=== PATIENT | male | born 1980 | race Caucasian/White ===

== ENCOUNTER 2020-04-12 23:17 | Emergency (ER) | payer OTHER, SELFPAY ==
[2020-04-12] MEDS ORDERED: MORPHINE 4 MG/ML SYR ONE (23:54)
[2020-04-12] MEDS ORDERED: ONDANSETRON 4 MG/2 ML VIAL ONE (23:55)
[2020-04-12] MEDS ORDERED: NA CHLORIDE 0.9% 1,000 ML ONE (23:55)
[2020-04-13] MEDS ORDERED: CEFTRIAXONE/SWI 1gm 1 GM/10 ML SYR ONE (00:54)
[2020-04-13] MEDS ORDERED: KETOROLAC 30 MG/ML INJ ONE (00:54)
[2020-04-13] MEDS ORDERED: FAMOTIDINE 20 MG/2 ML VIAL IV ONE (00:54)
[2020-04-13 01:53] LABS: Urine Blood 2+ (NEG); Urine Glucose TRACE (NEG); Urine Protein NEGATIVE (NEG)
[2020-04-13 01:54] LABS: Absolute Lymphocytes (CBC) 1.3 K/uL (0.7-4.9); Basophils % 0.5 % (0-1.3); Hematocrit 39.1 % (39.6-49.0); Lymphocytes % 14.1 % (15.3-44.8); MPV 11.2 fL (7.6-11.3); RBC Red Blood Cell Count 4.42 M/uL (4.33-5.43)
[2020-04-13 01:55] LABS: Protime INR 1.02
[2020-04-13 02:21] LABS: ALT/SGPT 102 U/L (12-78); AST/SGOT 52 U/L (15-37); Albumin 3.3 g/dL (3.4-5.0); Alkaline Phosphatase 89 U/L (45-117); BUN Blood Urea Nitrogen 18 mg/dL (7-18); Bicarbonate 27 mmol/L (21-32); Bilirubin Direct < 0.1 mg/dL (0-0.2); Bilirubin Total 0.3 mg/dL (0.2-1.0); Glucose Level 112 mg/dL (74-106); Lipase 85 U/L (73-393); Magnesium 2.1 mg/dL (1.8-2.4); NT PRO-BNP 126 pg/mL (<125); Potassium 3.4 mmol/L (3.5-5.1); Protein, Total 6.4 g/dL (6.4-8.2); Sodium Level 141 mmol/L (136-145); Troponin (Emerg Dept Use Only) < 0.02 ng/mL (0.0-0.045)
--- NOTE | 2020-04-13 02:51 | ER ---
Nurse's Notes [facility] Name: Clayton Mina Age: 39 yrs Sex: Male : 1980 Arrival Date: 04/12/2020 Time: 23:19 Bed 15 Private MD: Diagnosis: Abdominal tenderness;Hematuria;Hypokalemia Presentation: 04/12 23:20 Chief complaint: EMS states: toned out by patient for abd pain on lt side that was ll2 debilitating. said it began this evening and got so bad he could barely stand up. no known allergies and no home meds. Coronavirus screen: Client denies travel out of the [place] in the last 14 days. At this time, the client does not indicate any symptoms associated with coronavirus-19. Ebola Screen: Patient negative for fever greater than or equal to 101.5 degrees Fahrenheit, and additional compatible Ebola Virus Disease symptoms. Initial Sepsis Screen: Does the patient meet any 2 criteria? No. Patient's initial sepsis screen is negative. Does the patient have a suspected source of infection? No. Patient's initial sepsis screen is negative. Risk Assessment: Do you want to hurt yourself or someone else? Patient reports no desire to harm self or others. Onset of symptoms was April 12, 2020. 23:20 Method Of Arrival: EMS: [facility] ll2 23:20 Acuity: AUDREY 3 ll2 Historical: - Allergies: 23:38 No Known Allergies; sg - PMHx: 23:38 "L lung collapsed twice"; sg - PSHx: 23:38 None; sg - Immunization history:: Adult Immunizations up to date. - Family history:: not pertinent. - Social history:: Smoking status: . Screenin:30 Abuse screen: Denies threats or abuse. Nutritional screening: No deficits noted. ll2 Tuberculosis screening: No symptoms or risk factors identified. Fall Risk None identified. Assessment: 23:30 General: Appears in no apparent distress. uncomfortable, Behavior is calm, cooperative, ll2 appropriate for age. Pain: Complains of pain in left lower quadrant and left upper quadrant and posterior aspect of left lateral abdomen and anterior aspect of left lateral abdomen. Neuro: Level of Consciousness is awake, alert, obeys commands, Oriented to person, place, time, situation. Cardiovascular: Patient's skin is warm and dry. Respiratory: Airway is patent Respiratory effort is even, unlabored, Respiratory pattern is regular, symmetrical. GI: Bowel sounds present X 4 quads. Abd is soft Abdomen is tender to palpation in left lower quadrant and left upper quadrant and posterior aspect of left lateral abdomen and anterior aspect of left lateral abdomen. : No signs and/or symptoms were reported regarding the genitourinary system. EENT: No signs and/or symptoms were reported regarding the EENT system. Derm: Skin is intact, is healthy with good turgor, Skin is dry, Skin is pink, warm \\T\\ dry. Musculoskeletal: Circulation, motion, and sensation intact. Range of motion: intact in all extremities. 04/13 00:30 Reassessment: Patient and/or family updated on plan of care and expected duration. Pain ll2 level reassessed. Patient is alert, oriented x 3, equal unlabored respirations, skin warm/dry/pink. pt states the morphine has relieved his pain at this time. 01:30 Reassessment: No changes from previously documented assessment. Patient and/or family ll2 updated on plan of care and expected duration. Pain level reassessed. Patient is alert, oriented x 3, equal unlabored respirations, skin warm/dry/pink. ERD to bedside discussing need for admit. 02:30 Reassessment: Patient and/or family updated on plan of care and expected duration. Pain ll2 level reassessed. Patient is alert, oriented x 3, equal unlabored respirations, skin warm/dry/pink. 03:12 Reassessment: Patient and/or family updated on plan of care and expected duration. Pain ll2 level reassessed. Patient is alert, oriented x 3, equal unlabored respirations, skin warm/dry/pink. ERD to bedside discussing plans for D/C. Vital Signs: 04/12 23:19 BP 158 / 108; Pulse 59; Resp 18; Temp 98.7; Pulse Ox 99% on R/A; ll2 23:20 BP 158 / 108; Pulse 58; Resp 18; Temp 98.7; Pulse Ox 99% on R/A; ll2 04/13 00:34 BP 130 / 68; Pulse 63; Resp 18; Pulse Ox 99% on R/A; ll2 01:00 BP 133 / 85; Pulse 64; Resp 16; Pulse Ox 98% on R/A; ll2 02:00 BP 126 / 77; Pulse 64; Resp 18; Pulse Ox 98% on R/A; ll2 03:00 BP 120 / 82; Pulse 56; Resp 17; Pulse Ox 97% on R/A; ll2 ED Course: 04/12 23:19 Patient arrived in ED. cf2 23:21 Da Silvestre MD is Attending Physician. arron 23:30 No provider procedures requiring assistance completed. ll2 23:30 Initial lab(s) drawn, by me, sent to lab. Inserted saline lock: 20 gauge in right ll2 antecubital area, using aseptic technique. Blood collected. 23:38 Arm band placed on. sg 04/13 00:00 Patient has correct armband on for positive identification. Placed in gown. Bed in low ll2 position. Call light in reach. Side rails up X 1. athletic monitor on. Pulse ox on. NIBP on. 00:04 Ayde Li, YU is Primary Nurse. ll2 00:29 CT Stone Protocol In Process Unspecified. EDMS 00:31 Triage completed. ll2 00:46 XRAY Chest (1 view) In Process Unspecified. EDMS 01:40 Lab(s) recollected, by me, sent to lab. Urine collected: clean catch specimen, clear. sg 02:50 Dov Rose MD is Referral Physician. arron 03:25 IV discontinued, intact, bleeding controlled, No redness/swelling at site. Pressure ll2 dressing applied. Administered Medications: 04/12 23:55 CANCELLED (Duplicate Order): Cipro 400 mg 200 ml IVPB once over 60 mins arron 23:55 CANCELLED (Duplicate Order): Flagyl 500 mg 100 ml IVPB at 200 ml/hr once over 30 mins arron 04/13 00:00 Drug: NS 0.9% 1000 ml Route: IV; Rate: 1 bolus; Site: right antecubital; ll2 01:00 Follow up: Response: No adverse reaction; IV Status: Completed infusion; IV Intake: ll2 1000ml 00:04 Drug: morphine 4 mg Route: IVP; Site: right antecubital; ll2 00:55 Follow up: Response: No adverse reaction; Pain is decreased; RASS: Alert and Calm (0) ll2 00:04 Drug: Zofran (Ondansetron) 4 mg Route: IVP; Site: right antecubital; ll2 00:55 Follow up: Response: No adverse reaction ll2 00:55 Drug: Rocephin 1 grams Route: IV; Rate: per protocol; Site: right antecubital; ll2 00:56 Follow up: Response: No adverse reaction; IV Status: Completed infusion ll2 00:55 Drug: TORadol 30 mg Route: IVP; Site: right antecubital; ll2 01:55 Follow up: Response: No adverse reaction ll2 01:01 Drug: Pepcid 20 mg Route: IVP; Site: right antecubital; ll2 02:00 Follow up: Response: No adverse reaction ll2 03:09 Drug: Potassium Effervescent Tablet 25 mEq Route: PO; ll2 03:09 Follow up: Response: Medication administered at discharge. ll2 Intake: 01:00 IV: 1000ml; Total: 1000ml. ll2 Outcome: 02:50 Discharge ordered by MD. heller 03:24 Discharged to home ambulatory. ll2 03:24 Condition: stable 03:24 Discharge instructions given to patient, Instructed on discharge instructions, follow up and referral plans. medication usage, Demonstrated understanding of instructions, follow-up care, medications, Prescriptions given X 4. 03:25 Patient left the ED. ll2 Signatures: Dispatcher [employer] EDMaikel Forrest RN RN Da Bauer MD MD cha Frazier, Celesta 2 Ayde Li RN RN ll2 Corrections: (The following items were deleted from the chart) 00:31 / 23:20 Chief complaint: ll2 ll2
--- NOTE | 2020-04-13 02:51 | EDPHYS ---
Physician Documentation [facility] Name: Clayton Mina Age: 39 yrs Sex: Male : 1980 Arrival Date: 04/12/2020 Time: 23:19 Bed 15 Private MD: ED Physician Da Silvestre HPI: 04/12 23:57 This 39 yrs old Male presents to ER via Unassigned with complaints of arron Abdominal Pain. 23:57 The patient presents with abdominal pain in the lower abdomen, in the left lower arron quadrant. Onset: The symptoms/episode began/occurred just prior to arrival. The symptoms radiate to left back, the left flank. Associated signs and symptoms: none. The symptoms are described as sharp, steady. Modifying factors: The symptoms are alleviated by nothing, the symptoms are aggravated by nothing. Severity of pain: At its worst the pain was moderate in the emergency department the pain is unchanged. The patient has not experienced similar symptoms in the past. Historical: - Allergies: 23:38 No Known Allergies; sg - PMHx: 23:38 "L lung collapsed twice"; sg - PSHx: 23:38 None; sg - Immunization history:: Adult Immunizations up to date. - Family history:: not pertinent. - Social history:: Smoking status: . ROS: 23:57 Constitutional: Negative for fever, chills, and weight loss, Eyes: Negative for injury, arron pain, redness, and discharge, ENT: Negative for injury, pain, and discharge, Neck: Negative for injury, pain, and swelling, Cardiovascular: Negative for chest pain, palpitations, and edema, Respiratory: Negative for shortness of breath, cough, wheezing, and pleuritic chest pain, Back: Negative for injury and pain, : Negative for injury, bleeding, discharge, and swelling, MS/Extremity: Negative for injury and deformity, Skin: Negative for injury, rash, and discoloration, Neuro: Negative for headache, weakness, numbness, tingling, and seizure, Psych: Negative for depression, anxiety, suicide ideation, homicidal ideation, and hallucinations, Allergy/Immunology: Negative for hives, rash, and allergies, Endocrine: Negative for neck swelling, polydipsia, polyuria, polyphagia, and marked weight changes, Hematologic/Lymphatic: Negative for swollen nodes, abnormal bleeding, and unusual bruising. 23:57 Abdomen/GI: Positive for abdominal pain, abdominal cramps, of the anterior aspect of left lateral abdomen, posterior aspect of left lateral abdomen, left upper quadrant and left lower quadrant. Exam: 23:57 Constitutional: This is a well developed, well nourished patient who is awake, alert, arron and in no acute distress. Head/Face: Normocephalic, atraumatic. Eyes: Pupils equal round and reactive to light, extra-ocular motions intact. Lids and lashes normal. Conjunctiva and sclera are non-icteric and not injected. Cornea within normal limits. Periorbital areas with no swelling, redness, or edema. ENT: Nares patent. No nasal discharge, no septal abnormalities noted. Tympanic membranes are normal and external auditory canals are clear. Oropharynx with no redness, swelling, or masses, exudates, or evidence of obstruction, uvula midline. Mucous membranes moist. Neck: Trachea midline, no thyromegaly or masses palpated, and no cervical lymphadenopathy. Supple, full range of motion without nuchal rigidity, or vertebral point tenderness. No Meningismus. Chest/axilla: Normal chest wall appearance and motion. Nontender with no deformity. No lesions are appreciated. Cardiovascular: Regular rate and rhythm with a normal S1 and S2. No gallops, murmurs, or rubs. Normal PMI, no JVD. No pulse deficits. Respiratory: Lungs have equal breath sounds bilaterally, clear to auscultation and percussion. No rales, rhonchi or wheezes noted. No increased work of breathing, no retractions or nasal flaring. Back: No spinal tenderness. No costovertebral tenderness. Full range of motion. Male : Normal genitalia with no discharge or lesions. Skin: Warm, dry with normal turgor. Normal color with no rashes, no lesions, and no evidence of cellulitis. MS/ Extremity: Pulses equal, no cyanosis. Neurovascular intact. Full, normal range of motion. Neuro: Awake and alert, GCS 15, oriented to person, place, time, and situation. Cranial nerves II-XII grossly intact. Motor strength 5/5 in all extremities. Sensory grossly intact. Cerebellar exam normal. Normal gait. Psych: Awake, alert, with orientation to person, place and time. Behavior, mood, and affect are within normal limits. 23:57 Abdomen/GI: Inspection: distension, that is mild, Bowel sounds: normal, Palpation: mild abdominal tenderness, in the posterior aspect of left lateral abdomen, left upper quadrant and left lower quadrant, Liver: no appreciated palpable abnormalities, Hernia: not appreciated. 04/13 00:02 ECG was reviewed by the Attending Physician. [facility] Vital Signs: 04/12 23:19 BP 158 / 108; Pulse 59; Resp 18; Temp 98.7; Pulse Ox 99% on R/A; ll2 23:20 BP 158 / 108; Pulse 58; Resp 18; Temp 98.7; Pulse Ox 99% on R/A; ll2 04/13 00:34 BP 130 / 68; Pulse 63; Resp 18; Pulse Ox 99% on R/A; ll2 01:00 BP 133 / 85; Pulse 64; Resp 16; Pulse Ox 98% on R/A; ll2 02:00 BP 126 / 77; Pulse 64; Resp 18; Pulse Ox 98% on R/A; ll2 03:00 BP 120 / 82; Pulse 56; Resp 17; Pulse Ox 97% on R/A; ll2 MDM: 04/12 23:21 Patient medically screened. [facility] 04/13 00:00 Differential diagnosis: bowel obstruction, non-specific abd pain, pancreatitis, arron Pyelonephritis, Ureterolithiasis, urinary tract infection. Data reviewed: vital signs, nurses notes, lab test result(s), radiologic studies, CT scan. Data interpreted: Pulse oximetry: on room air is 96 %. Test interpretation: by ED physician or midlevel provider: plain radiologic studies. Counseling: I had a detailed discussion with the patient and/or guardian regarding: the historical points, exam findings, and any diagnostic results supporting the discharge/admit diagnosis, lab results, radiology results. 04/12 23:41 Order name: Basic Metabolic Panel; Complete Time: 02:49 [facility] 04/12 23:41 Order name: CBC with Diff [facility] 04/12 23: Order name: LFT's; Complete Time: 02:49 [facility] 04/12 23:41 Order name: Magnesium; Complete Time: 02:49 [facility] 04/12 23:41 Order name: NT PRO-BNP; Complete Time: 02:49 [facility] 04/12 23:41 Order name: PT-INR; Complete Time: 02:05 [facility] 04/12 23:41 Order name: Troponin (emerg Dept Use Only); Complete Time: 02:49 [facility] 04/12 23:41 Order name: Lipase; Complete Time: 02:49 [facility] 04/12 23:41 Order name: Urine Culture [facility] 04/12 23:57 Order name: CT Stone Protocol [facility] 04/13 01:43 Order name: Urine Dipstick--Ancillary (enter results); Complete Time: 02:05 ar 04/13 01:55 Order name: CBC Smear Scan [facility] 04/12 23:41 Order name: EKG; Complete Time: 23:42 [facility] 04/12 23:41 Order name: Cardiac monitoring; Complete Time: 00:56 [facility] 04/12 23:41 Order name: EKG - Nurse/Tech; Complete Time: 00:56 [facility] 04/12 23:41 Order name: IV Saline Lock; Complete Time: 00:56 [facility] 04/12 23:41 Order name: Labs collected and sent; Complete Time: 00:56 [facility] 04/13 00:39 Order name: XRAY Chest (1 view) [facility] 04/12 23:41 Order name: O2 Per Protocol; Complete Time: 00:56 [facility] 04/12 23:41 Order name: O2 Sat Monitoring; Complete Time: 00:56 [facility] 04/12 23:41 Order name: Urine Dipstick-Ancillary (obtain specimen); Complete Time: 01:42 [facility] 04/13 01:03 Order name: Labs - recollect needed: Recollect all labs; Complete Time: 01:54 ar5 EC:02 Rate is 62 beats/min. Rhythm is regular. QRS [place] is Normal. CT interval is normal. QRS arron interval is normal. QT interval is prolonged at 479 msec. No Q waves. T waves are Normal. No ST changes noted. Clinical impression: NSR w/ Non-specific ST/T Changes and No evidence of ischemia. Interpreted by me. Reviewed by me. Administered Medications: 04/12 23:55 CANCELLED (Duplicate Order): Cipro 400 mg 200 ml IVPB once over 60 mins [facility] 23:55 CANCELLED (Duplicate Order): Flagyl 500 mg 100 ml IVPB at 200 ml/hr once over 30 mins [facility] 04/13 00:00 Drug: NS 0.9% 1000 ml Route: IV; Rate: 1 bolus; Site: right antecubital; ll2 01:00 Follow up: Response: No adverse reaction; IV Status: Completed infusion; IV Intake: ll2 1000ml 00:04 Drug: morphine 4 mg Route: IVP; Site: right antecubital; ll2 00:55 Follow up: Response: No adverse reaction; Pain is decreased; RASS: Alert and Calm (0) ll2 00:04 Drug: Zofran (Ondansetron) 4 mg Route: IVP; Site: right antecubital; ll2 00:55 Follow up: Response: No adverse reaction ll2 00:55 Drug: Rocephin 1 grams Route: IV; Rate: per protocol; Site: right antecubital; ll2 00:56 Follow up: Response: No adverse reaction; IV Status: Completed infusion ll2 00:55 Drug: TORadol 30 mg Route: IVP; Site: right antecubital; ll2 01:55 Follow up: Response: No adverse reaction ll2 01:01 Drug: Pepcid 20 mg Route: IVP; Site: right antecubital; ll2 02:00 Follow up: Response: No adverse reaction ll2 03:09 Drug: Potassium Effervescent Tablet 25 mEq Route: PO; ll2 03:09 Follow up: Response: Medication administered at discharge. 2 Disposition: 04/13/20 02:50 Discharged to Home. Impression: Abdominal tenderness, Hematuria, Hypokalemia. - Condition is Stable. - Discharge Instructions: Abdominal Pain, Adult, Potassium Content of Foods, Hematuria, Adult, Abdominal Pain, Adult, [id number], Hypokalemia. - Prescriptions for Bentyl 20 mg Oral Tablet - take 1 tablet by ORAL route every 6 hours As needed; 20 tablet. Pepcid 20 mg Oral Tablet - take 1 tablet by ORAL route every 12 hours for 10 days; 20 tablet. Flomax 0.4 mg Oral Capsule, Sust. Release 24 hr - take 1 capsule by ORAL route once daily 1/2 hour following the same meal each day; 14 capsule. Cipro 500 mg Oral Tablet - take 1 tablet by ORAL route every 12 hours for 7 days; 14 tablet. - Medication Reconciliation Form, Thank You Letter, Antibiotic Education, Prescription Opioid Use, Work release form form. - Follow up: Private Physician; When: 2 - 3 days; Reason: Recheck today's complaints, Continuance of care, Re-evaluation by your physician. Follow up: Dov Rose; When: 7 - 10 days; Reason: Recheck today's complaints, Re-evaluation by your physician. - Problem is new. - Symptoms have improved. Signatures: Dispatcher [employer] [facility] Maikel Hinson, Da Tabor RN, MD MD cha Robles, Autumn ar5 Ayde Li RN RN ll2 Corrections: (The following items were deleted from the chart) 04/12 23:55 23:41 Cipro 400 mg 200 ml IVPB once over 60 mins ordered. on license of [facility] 23:55 23:41 Flagyl 500 mg 100 ml IVPB at 200 ml/hr once over 30 mins ordered. on license of [facility] 04/13 00:12 04/12 23:42 Abdomen Pelvis W Con+CT.RAD.BRZ ordered. [facility] 04/13 00:18 00:02 Chest Single View+RAD.RAD.BRZ ordered. [facility] 00:37 04/12 23:42 Chest Single View+RAD.RAD.BRZ ordered. [facility] 04/13 03:25 02:50 04/13/2020 02:50 Discharged to Home. Impression: Abdominal tenderness; Hematuria; ll2 Hypokalemia. Condition is Stable. Discharge Instructions: Abdominal Pain, Adult, Abdominal Pain, Adult, [id number], Hematuria, Adult. Prescriptions for Bentyl 20 mg Oral Tablet - take 1 tablet by ORAL route every 6 hours As needed; 20 tablet, Pepcid 20 mg Oral Tablet - take 1 tablet by ORAL route every 12 hours for 10 days; 20 tablet, Flomax 0.4 mg Oral Capsule, Sust. Release 24 hr - take 1 capsule by ORAL route once daily 1/2 hour following the same meal each day; 14 capsule, Cipro 500 mg Oral Tablet - take 1 tablet by ORAL route every 12 hours for 7 days; 14 tablet. and Forms are Medication Reconciliation Form, Thank You Letter, Antibiotic Education, Prescription Opioid Use. Follow up: Private Physician; When: 2 - 3 days; Reason: Recheck today's complaints, Continuance of care, Re-evaluation by your physician. Follow up: Dov Rose; When: 7 - 10 days; Reason: Recheck today's complaints, Re-evaluation by your physician. Problem is new. Symptoms have improved. [facility]
[2020-04-13 03:16] LABS: Blood Morphology Comment NOT SEEN (NOT SEEN); Platelet Estimate DECR; White Blood Cell Scan OK (OK)
[2020-04-13] MEDS ORDERED: POTASSIUM 25 MEQ EFFERV TAB ONE (03:19)
--- NOTE | 2020-04-13 08:03 | RAD REPORT ---
EXAM DESCRIPTION: RAD - Chest Single View - 04/13/2020 12:46 am CLINICAL HISTORY: CHEST PAIN COMPARISON: December 2017 TECHNIQUE: AP portable chest image was obtained 04/13/2020 12:46 am . FINDINGS: No new mass or consolidation. Chronic interstitial pattern matches comparison. Heart and v asculature are normal. No measurable pleural effusion and no pneumothorax. No acute bony abnormality seen. No acute aortic findings suspected. IMPRESSION: No acute cardiopulmonary process. Chronic interstitial pattern similar to comparison
--- NOTE | 2020-04-13 13:10 | RAD REPORT ---
EXAM DESCRIPTION: CT - Stone Protocol - 04/13/2020 6:38 am CLINICAL HISTORY: FLANK PAIN COMPARISON: None Available. TECHNIQUE: CT of the abdomen and pelvis without IV contrast. Evaluation of the solid organs and vasc ulature is suboptimal due to lack of IV contrast. FINDINGS: Lung Bases: The visualized lung bases are clear. Bones: No destructive bone lesions identified. Abdomen: Liver: The liver has normal size and density. 3 small hypodensities in the liver are suboptimally arron racterized due to lack of IV contrast. These likely represent cysts. Gallbladder: No calcified gallstones. Spleen, Pancreas, and Adrenal Glands: The spleen, pancreas, and adrenal glands are unremarkable. Kidneys: The kidneys have normal size without evidence of hydronephrosis. No obstructing ureteral oly culi. Vasculature: The aorta and IVC have normal caliber and position. Stomach: The stomach and duodenum have normal course. Other: No free intraperitoneal air. No free fluid or lymphadenopathy. Pelvis: Bladder: Urinary bladder is unremarkable. Bowel: No dilated loops of large or small bowel. Appendix: Normal appendix. Pelvis: Prostate is not enlarged. Single punctate calcification of the pelvis is thought to represent a phlebolith as it appears to be external to the urinary bladder on image #[id number]. IMPRESSION: 1. No acute inflammatory or obstructive process identified. This exam was performed according to our departmental dose-optimization program, which includes autom ated exposure control, adjustment of the mA and/or kV according to patient size and/or use of iterati ve reconstruction technique. Electronically signed by: Jarek Clarke 04/13/2020 12:44 AM SHIP'S OFFICER Due to temporary technical issues with the PACS/Fluency reporting system, reports are being signed by the in house radiologist without review as a courtesy to ensure prompt reporting. The interpreting r adiologist is fully responsible for the content of the report.
[2020-04-13 15:28] VITALS: TEMP 98.7
[2020-04-13 15:37] VITALS: BP 120/82; O2SAT 97
== END 2020-04-13 03:25 | disposition home or self-care (01) ==
LOC: ER 23:17
DX: R31.9 Hematuria, unspecified (principal); E87.6 Hypokalemia
CPT/HCPCS: 36415; 71045; 74176; 76377; 80048; 80076; 81003; 83690; 83735; 83880; 84484; 85025; 85610; 87086; 87088; 93005; 96361; 96374; 96375; 99285; J0696; J2405; J7030